=== PATIENT | female | born 1955 | race Caucasian/White ===

== ENCOUNTER 2016-10-14 20:32 | Emergency (ER) | payer OTHER ==
--- NOTE | ~2016-10-14 | CR63 ---
[facility] A Service of [facility] & [facility] RADIOLOGY TEXT RESULTS PATIENT: JIL PIERCE LOCATION: [facility] : 57 UNIT #: [id number] AGE: [address]: Landon Barrientos MD SEX: F ORDER DR: [id number] [facility] [address] [place], [place] [address] [id number] E MR#: [id number] Acc #: [id number] NAME: JIL PIERCE : 1955 SEX: F STUDY DATE/TIME: 10/14/2016 20:31 UNIT: [facility] ROOM: STUDY DESCRIPTION: CR Chest 2 View Attending Physician: Landon Barrientos M.D. Ordering Physician: Landon Barrientos M.D. Primary Care Physician: Jason Gutierrez M.D. MEDICAL IMAGING REPORT This report is preliminary unless electronic signature is present EXAM PA and lateral chest radiograph 10/14/2016 HISTORY Fell Tuesday on left side. Continued pain. FINDINGS PA and lateral views of the chest are obtained. Heart size is upper limits of normal. Vascular pattern is normal. Lungs are clear. Thoracic spine appears unremarkable. No fractures are identified. CONCLUSION Negative chest. No acute findings. Dictated by... Ivan Abarca M.D. THIS IS AN ELECTRONICALLY VERIFIED REPORT Ivan Abarca M.D. at 10/18/2016 5:09 PM ONEAL/queta TD: 10/15/2016 09:07 JOB #: [id number] MEDICAL IMAGING REPORT COPY
--- NOTE | ~2016-10-14 | CR150 ---
[facility] A Service of [facility] & [facility] RADIOLOGY TEXT RESULTS PATIENT: JIL PIERCE LOCATION: [facility] : 57 UNIT #: [id number] AGE: [address]: Landon Barrientos MD SEX: F ORDER DR: [id number] [facility] [address] [place], [place] [address] [id number] E MR#: [id number] Acc #: [id number] NAME: JIL PIERCE : 1955 SEX: F STUDY DATE/TIME: 10/14/2016 20:25 UNIT: [facility] ROOM: STUDY DESCRIPTION: CR Hip Min 2 Views Lt Attending Physician: Landon Barrientos M.D. Ordering Physician: Landon Barrientos M.D. Primary Care Physician: Jason Gutierrez M.D. MEDICAL IMAGING REPORT This report is preliminary unless electronic signature is present EXAM AP pelvis and left hip 10/14/2016 HISTORY Left hip pain since fall on Tuesday. An AP view of the pelvis and oblique view of the left hip were submitted. FINDINGS Bony elements are intact. Joint space and articular surfaces are preserved. No fractures are seen. CONCLUSION Mild degenerative changes otherwise negative. Dictated by... Ivan Abarca M.D. THIS IS AN ELECTRONICALLY VERIFIED REPORT Ivan Abarca M.D. at 10/18/2016 5:11 PM ONEAL/petey TD: 10/15/2016 09:06 JOB #: [id number] MEDICAL IMAGING REPORT Page 1 of 1 COPY
--- NOTE | ~2016-10-14 | CR181 ---
[facility] A Service of [facility] & [facility] RADIOLOGY TEXT RESULTS PATIENT: JIL PIERCE LOCATION: [facility] : 57 UNIT #: [id number] AGE: [address]: Landon Barrientos MD SEX: F ORDER DR: [id number] [facility] [address] [place], [place] [address] [id number] E MR#: [id number] Acc #: [id number] NAME: JIL PIERCE : 1955 SEX: F STUDY DATE/TIME: 10/14/2016 20:27 UNIT: [facility] ROOM: STUDY DESCRIPTION: CR Lumbar Spine 2 or 3 Views Attending Physician: Landon Barrientos M.D. Ordering Physician: Landon Barrientos M.D. Primary Care Physician: Jason Gutierrez M.D. MEDICAL IMAGING REPORT This report is preliminary unless electronic signature is present EXAM Lumbosacral spine 3 views COMPARISON 01/08/2016 HISTORY Fell Tuesday, low back pain since. FINDINGS 3 views are submitted. There is disc space narrowing at L5-S1 unchanged. There is minimal anterolisthesis of L4-5. There is advanced multilevel facet disease throughout the lumbar spine. No fractures or significant subluxations are seen. Compared with the previous films there has been no interim change. CONCLUSION Osteopenia. Chronic degenerative disc disease L5-S1. Chronic degenerative facet disease throughout the lumbar spine with very mild anterolisthesis of L4-5, unchanged from previous L-spine series. Dictated by... Ivan Abarca M.D. THIS IS AN ELECTRONICALLY VERIFIED REPORT Ivan Abarca M.D. at 10/18/2016 5:09 PM ONEAL/queta TD: 10/15/2016 09:12 JOB #: [id number] MEDICAL IMAGING REPORT COPY
== END 2016-10-14 21:45 | disposition home or self-care (01) ==
LOC: CED 20:32
DX: S39.012A Strain of muscle, fascia and tendon of lower back, initial encounter (principal); S70.02XA Contusion of left hip, initial encounter; S20.212A Contusion of left front wall of thorax, initial encounter; E11.9 Type 2 diabetes mellitus without complications; I10 Essential (primary) hypertension; W19.XXXA Unspecified fall, initial encounter
CPT/HCPCS: 71020; 72100; 73502; 99283; 99284